=== PATIENT | male | born 1960 | race Caucasian/White ===

== ENCOUNTER 2017-05-31 12:05 | Day surgery (SDC) | payer OTHER ==
[2017-05-26 11:44] VITALS: BMI 32.3
[~2017-05-31 12:05] MED LIST: oxyCODONE HCL 10 MG SUSTAINED ACTING TABLET PO ONE
[2017-05-31] MEDS ORDERED: THROMBIN (BOVINE) 5,000 UNIT VIAL TP ONE ×2 (13:48→16:04)
[2017-05-31] MEDS ORDERED: methylPREDNISolone ACET (DEPO) 40 MG/1 ML VIAL ONE (13:48)
[2017-05-31] MEDS ORDERED: LIDOCAINE 1%/EPI 1:100000 (20 ML MULTI DOSE VIAL) ONE (13:49)
[2017-05-31] MEDS ORDERED: BUPIVACAINE HCL/PF 2.5 MG/ML - 30 ML VIAL IJ ONE (13:49)
[2017-05-31] MEDS ORDERED: BUPIVACAINE HCL/PF (5 MG/ML) 30 ML VIAL IJ ONE (14:13)
[2017-05-31] MEDS ORDERED: DEXAMETHASONE SOD PHOSPHATE/PF 10 MG/ML SDV ONE (14:13)
[2017-05-31] MEDS ORDERED: MIDAZOLAM HCL 2 MG/2 ML SINGLE DOSE VIAL ONE (14:15)
--- NOTE | 2017-05-31 14:49 | HP ---
History & Physical Update - History History: No Change - Physical Physical: No Change - Assessment Assessment: No Change - Plan Plan: No Change
[2017-05-31] MEDS ORDERED: ONDANSETRON 4 MG/2 ML VIAL ONE (15:19)
[2017-05-31] MEDS ORDERED: DEXAMETHASONE SOD PHOSPHATE 4 MG/1 ML VIAL ONE (15:19)
[2017-05-31] MEDS ORDERED: ceFAZolin SODIUM 1 GM VIAL ONE (15:19)
[2017-05-31] MEDS ORDERED: LIDOCAINE 1%/EPI 1:100000 (50 ML MULTI DOSE VIAL) INF ONE (15:30)
[2017-05-31] MEDS ORDERED: GELATIN SPONGE,ABSORBABLE 1 GM PACKET TP ONE (16:05)
[2017-05-31] MEDS ORDERED: methylPREDNISolone ACET (DEPO) 40 MG/1 ML VIAL IM ONE (16:38)
[2017-05-31] MEDS ORDERED: BUPIVACAINE HCL/PF 0.25% (2.5MG/ML) 10 ML VIAL IJ ONE (16:39)
[2017-05-31] MEDS ORDERED: PROMETHAZINE HCL 25 MG/1 ML VIAL IVPUSH PRN (17:08)
[2017-05-31] MEDS ORDERED: oxyCODONE HCL 5 MG TABLET PO PRN ×2 (17:08)
[2017-05-31] MEDS ORDERED: ONDANSETRON 4 MG/2 ML VIAL IVPUSH PRN (17:08)
[2017-05-31] MEDS ORDERED: LACTATED RINGERS SOLUTION 1,000 ML IV SCH (17:15)
--- NOTE | 2017-05-31 17:15 | OP ---
Operative Note - Note: Operative Date: 05/31/17 Pre-Operative Diagnosis: spinal stenosis Operation: laimectomy of L3-L4 and L4-L5 Surgeon: Rayshawn Hutchinson Anesthesia Associate: Emily Wang Anesthesiologist/BUILDING EQUIPMENT INSPECTOR: Imtiaz Schulz Anesthesia: Spinal Estimated Blood Loss (mls): 30 Fluid Volume Replaced (mls): 800 Operative Report Dictated: Yes
--- NOTE | 2017-05-31 17:16 | SURG ---
Surgery Pediatric Anesthesiologist Note Pediatric Anesthesiologist: Emliy Wang PA-C Date of Service: 05/31/17 Diagnosis: spinal stenosis Procedure: laminectomy of L3-L4 and L4-L5 I was present for the entirety of the operative procedure. For further detail, please refer to operative report. Visit type - Case Type Case Type: Scheduled Admission - Emergency Emergency Visit: No - New patient This patient is new to me today: Yes Date on this admission: 05/31/17
[2017-05-31 19:09] VITALS: TEMP 98.8
[2017-05-31 19:43] VITALS: BP 119/84; PULSE 97
--- NOTE | 2017-06-01 07:02 | OP ---
DATE OF OPERATION: 05/31/2017 PREOPERATIVE DIAGNOSIS: Spinal stenosis, L3-L4, L4-L5. POSTOPERATIVE DIAGNOSIS: Spinal stenosis, L3-L4, L4-L5. PROCEDURE PERFORMED: 1. Laminectomy, L3-L4. 2. Revision laminectomy, L4-L5. SURGEON: Rayshawn Hutchinson MD COMPLEX CARE NURSE: AURELIO Simmons ESTIMATED BLOOD LOSS: 50 mL. INTRAVENOUS FLUIDS: Per Anesthesia. ANESTHESIA: Spinal. COMPLICATIONS: None. DISPOSITION: Patient brought to the PACU in stable condition. INDICATIONS FOR SURGERY: The patient is a 56-year-old gentleman who has been suffering from pain from his back down his legs. X-rays and MRI were completed showing he has spinal stenosis at L3-L4 and L4-L5. He had previously undergone a laminectomy at L5-S1, which he had done well, but then, he had reoccurrence of the pain. MRI noted spinal stenosis at L4-L5. He had gone through an exhaustive course of treatment for this which included medications, physical therapy, as well as injections. Unfortunately, his pain continued to persist despite all this. At this point, risks, benefits, and alternatives were discussed, and the patient consented to surgery. OPERATIVE NOTE: Patient was brought to the operating room by the anesthesia staff. After appropriate patient identification was performed, spinal anesthesia was given. Appropriate anesthetic lines were placed. SCDs were placed on the patient. Patient was placed prone onto the Charles frame. Two needles were placed into his back to bird off the L3, L5 segments. An x- ray was taken to confirm the needles track. The needle was removed, and 10 mL of lidocaine with epinephrine was injected into his back at this time. His back was prepped and draped in a sterile manner. At this point, a time-out was completed. An incision was made from the top of L3 down to the bottom of L5. Dissection was carried down to the fascia. Fascia was split open at this time. An appropriate retractor was placed. A spinal needle was placed onto the L3-L4 lamina. An x-ray was taken to confirm this was correct. The needle was removed, and the microscope was brought in. At this point, the interspinous ligament at L3-L4 was removed. The spinous process at L4 was removed. A darcie was used to remove the lamina. A complete decompression was performed, such that by the end of the procedure, the L4 and L5 nerve roots appeared to be well decompressed. All bleeders were well controlled at this time. Steroids were placed over the nerve root. Floseal was placed over that. The fascia was closed with a No. 1 Vicryl suture. The subcutaneous tissues were closed with 2-0 Vicryl suture. Skin was closed with 3-0 Monocryl suture. Dermabond was applied. Steri-Strips were applied, and sterile dressings applied. Patient was placed supine, left the OR and went to the PACU in stable condition. Edgar GILLIS/[id number] MTDD
== END 2017-05-31 19:40 | disposition home or self-care (01) ==
LOC: FASU 12:05
PROVIDERS: ATTEND Orthopaedic Surgery Orthopaedic Surgery of the Spine
PROC: 01NB0ZZ Release Lumbar Nerve, Open Approach (ICD-10-PCS; principal; 2017-05-31 14:15)
DX: M48.061 Spinal stenosis, lumbar region without neurogenic claudication (principal)
CPT/HCPCS: 72100-TC; 76000-TC; 94760

== ENCOUNTER 2019-05-05 06:03 | Day surgery (SDC) | payer OTHER ==
[2019-05-04 10:46] VITALS: BMI 31.3
[2019-05-05] MEDS ORDERED: MIDAZOLAM HCL 2 MG/2 ML SINGLE DOSE VIAL ONE (06:55)
[2019-05-05] MEDS ORDERED: SUCCINYLCHOLINE CHLORIDE 200 MG/10 ML SYRINGE ONE (06:58)
[2019-05-05] MEDS ORDERED: ROCURONIUM BROMIDE 50 MG/5 ML SYRINGE ONE ×2 (06:58→07:51)
[2019-05-05] MEDS ORDERED: LIDOCAINE HCL/PF 2% SDV 5ML VIAL ONE (06:59)
[2019-05-05] MEDS ORDERED: DEXAMETHASONE SOD PHOSPHATE 4 MG/1 ML VIAL ONE ×2 (06:59→07:54)
[2019-05-05] MEDS ORDERED: KETOROLAC TROMETHAMINE 30 MG/1 ML VIAL ONE (06:59)
[2019-05-05] MEDS ORDERED: NEOSTIGMINE METHYLSULFATE 0.5 MG/ML - 10 ML MDV ONE (06:59)
[2019-05-05] MEDS ORDERED: GLYCOPYRROLATE 0.2 MG/1 ML VIAL ONE (06:59)
[2019-05-05] MEDS ORDERED: PROPOFOL 20 ML ONE ×2 (06:59→07:47)
[2019-05-05] MEDS ORDERED: DESFLURANE GAS 240 ML BOTTLE IH ONE (07:03)
[2019-05-05] MEDS ORDERED: COCAINE HCL 4% TOPICAL SOLUTION 4 ML BOTTLE TP ONE ×3 (07:21→08:02)
[2019-05-05] MEDS ORDERED: ONDANSETRON 4 MG/2 ML VIAL IVPUSH PRN (07:28)
[2019-05-05] MEDS ORDERED: LACTATED RINGERS SOLUTION 1,000 ML IV SCH (07:30)
[2019-05-05] MEDS ORDERED: LIDOCAINE 1%/EPI 1:100000 (20 ML MULTI DOSE VIAL) IJ ONE (08:00)
[2019-05-05] MEDS ORDERED: ACETAMINOPHEN 1000 MG/100 ML VIAL (NON FORMULARY) IVPB ONE ×2 (09:30→10:00)
[2019-05-05] MEDS ORDERED: BACITRACIN 15 GM TUBE TOPICAL OINTMENT ONE (09:32)
[2019-05-05] MEDS ORDERED: BACITRACIN 15 GM TUBE TOPICAL OINTMENT TP ONE (09:34)
[2019-05-05] MEDS ORDERED: ACETAMINOPHEN INJECTION 100 ML IVPB ONE (09:55)
--- NOTE | 2019-05-05 10:26 | OP ---
Operative Note - Note: Operative Date: 05/05/19 Pre-Operative Diagnosis: chronic sinusitis, deviated septum Operation: FESS (B frontal/ethmoid/maxillary/sphenoid) and septoplasty Post-Operative Diagnosis: Same as Pre-op Surgeon: Ming Caballero Anesthesia: General Specimens Removed: right sinus contents, left sinus contents and septum Estimated Blood Loss (mls): 20 Operative Report Dictated: Yes
--- NOTE | 2019-05-05 12:58 | OP ---
DATE OF OPERATION: 05/05/2019 PREOPERATIVE DIAGNOSIS: Chronic sinusitis and deviated septum. POSTOPERATIVE DIAGNOSIS: Chronic sinusitis and deviated septum. PROCEDURE: Bilateral endoscopic frontal, ethmoid, maxillary, and sphenoid sinus surgery and septoplasty. SURGEON: Ming Caballero MD ANESTHESIA: General endotracheal. INDICATIONS: The patient is a 58-year-old man with chronic sinusitis as manifested by difficulty breathing through his nose, sinus headaches, and discolored nasal drainage and phlegm refractory to medical management. CT scan showed inflammation in all paranasal sinuses. The nature and purpose of the proposed procedure as well as the risks, benefits, alternatives, and possible complications were discussed in detail with the patient who appears to understand and wishes to proceed with surgery. All questions were answered, and an informed consent was given by the patient. DESCRIPTION OF PROCEDURE: With the patient under general endotracheal anesthesia in the supine position with the back slightly raised, he was prepped and draped in the usual sterile fashion. The nose was decongested with 4% cocaine on cottonoid pledgets and then each side of the nasal septum, turbinates, and lateral nasal li were injected with a total of 6 mL 1% lidocaine with epinephrine 1:100,000. [employer] registration was then performed in the usual manner and then the procedure was begun on the left side of his nose. Under endoscopic guidance, the left sphenoid ostium was identified in the usual position between the septum and the superior turbinate. This was cannulated and dilated. No secretions were noted. The middle meatus was then examined, and a retrograde uncinectomy was performed. An smemohyf-uh-uggcderaf total ethmoidectomy was performed. The maxillary ostium was identified and opened widely in a posteroinferior direction. In the left maxillary antrum were some cloudy secretions, which were suctioned and then irrigated. The left frontal duct region was examined, and bony partitions and edematous mucosa were identified obstructing the frontal ostium. These partitions were removed so that there was a clear passageway open to the frontal sinus. Fusion Navigation machine was used for all parts of this procedure. The evaluation of the opposite side had to wait until the septoplasty was performed because of inadequate visualization due to the deviated septum. A left-sided hemitransfixion incision was made, and the left mucoperiosteal flap was elevated intact. An oblique incision was made on the septal cartilage taking care to leave a 1.5-cm caudal strut intact, and through this, a right mucoperiosteal flap was elevated intact. Deflected portions of septal bone and cartilage were resected ultimately resulting in a clear passageway on the right side. The septum was then quilted with aminata, and the incision was closed with 4-0 chromic. Then a right-sided sphenoidotomy, uncinectomy/ethmoidectomy, maxillary antrostomy, and frontal duct exploration was performed as done on the left side, with the only different findings being that there were no obvious secretions within the right maxillary antrum, and there was polypoid mucosa of the right ethmoid sinus. The specimens for evaluation were the left sinus contents and septum, and the right sinus contents. Dissolvable sinus packing was injected into each middle meatus and then NasoPore was placed as a spacer between the middle turbinates and the lateral nasal wall bilaterally. A nasal tip dressing was then placed, and when the patient awakened, he was extubated and discharged to the recovery room in satisfactory condition. There were no complications. Estimated blood loss 20 mL. MING CABALLERO M.D. [id number] MTDD
[2019-05-05 16:34] VITALS: BP 130/78; PULSE 88; TEMP 98
--- NOTE | 2019-05-08 17:18 | PATH ---
Surgical Pathology Report Patient Name: YADI WASHINGTON [facility]. Rec. #: [id number] /Age/Gender: 1960 (Age: 58) / M Account: [id number] Location: [facility] SURGICAL Taken: 05/05/2019 Received: 05/05/2019 Reported: 05/08/2019 Physicians: Ming Caballero Specimen(s) Received A: RIGHT SINUS CONTENT B: LEFT SINUS CONTENT AND SEPTUM Clinical History Chronic sinusitis and deviated nasal septum Final Diagnosis A. SINUS CONTENT, RIGHT, ENDOSCOPIC SINUS SURGERY: FRAGMENTS OF BENIGN RESPIRATORY MUCOSA WITH CHRONIC SINUSITIS AND BONE B. SINUS CONTENT AND SEPTUM, LEFT, ENDOSCOPIC SINUS SURGERY WITH SEPTOPLASTY: FRAGMENTS OF BENIGN RESPIRATORY MUCOSA WITH CHRONIC SINUSITIS, BONE, AND CARTILAGE. Electronically Signed Yudi Whitlock M.D. Gross Description A. Received in formalin labeled "right sinus content," is a 1.4 x 1.2 x 0.2 cm aggregate of pink-estrada soft tissue fragments. The specimen is entirely submitted in one cassette. B. Received in formalin labeled "left sinus contents and septum," is a 4.0 x 2.8 x 0.2 cm aggregate of estrada fragments of bone and cartilage. Contact Center Engineer sections are submitted in one cassette, following decalcification. 05/05/201905/05/2019
== END 2019-05-05 13:20 | disposition home or self-care (01) ==
LOC: JASU-SURG 06:03
PROVIDERS: ATTEND Otolaryngology
PROC: 09BU8ZZ Excision of Right Ethmoid Sinus, Via Natural or Artificial Opening Endoscopic (ICD-10-PCS; 2019-05-05)
PROC: 099R8ZZ Drainage of Left Maxillary Sinus, Via Natural or Artificial Opening Endoscopic (ICD-10-PCS; 2019-05-05)
PROC: 099Q8ZZ Drainage of Right Maxillary Sinus, Via Natural or Artificial Opening Endoscopic (ICD-10-PCS; 2019-05-05)
PROC: 09BV8ZZ Excision of Left Ethmoid Sinus, Via Natural or Artificial Opening Endoscopic (ICD-10-PCS; principal; 2019-05-05 07:30)
DX: J34.2 Deviated nasal septum (principal); J32.9 Chronic sinusitis, unspecified
CPT/HCPCS: 88304-TC; 88311-TC; 94760; J0131